=== PATIENT | male | born 1995 | race Caucasian/White ===

== ENCOUNTER 2016-07-23 14:20 | Emergency (ER) | payer OTHER ==
[2016-07-23 14:31] VITALS: BP 142/75; PULSE 69; RESP 16; TEMP 98.6; O2SAT 96
--- NOTE | 2016-07-23 15:14 | UCPHY ---
H & P Time Seen by Provider: 07/23/16 14:30 Patient Type: Established HPI/ROS: This patient presents with finger laceration. 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 The bleeding was controlled with direct pressure. No other injuries. ROS: No numbness. No difficulty moving the finger. No Other injuries. 5 point ROS is otherwise negative. Past Medical/Surgical History: Immunizations up-to-date Smoking Status: Former smoker Physical Exam: Physical Exam Vital signs are normal. General: No acute distress Eyes: Pupils equal and react to light. Extraocular motions are intact. Lungs: No respiratory distress. Cardiac: Brisk capillary refill is intact throughout. Skin: There is a 1.3 cm full-thickness laceration to the plantar aspect of the left 2nd finger distal phalanx with minimal bleeding. Subcutaneous tissues evident but no deeper structures are injured. No foreign bodies are present on direct examination. Neuro: Alert and oriented x3 with no sensorimotor deficits. Constitutional: Initial Vital Signs Temperature (C) 37 C 07/23/16 14:22 Heart Rate 69 07/23/16 14:22 Respiratory Rate 16 07/23/16 14:22 Blood Pressure 142/75 H 07/23/16 14:22 O2 Sat (%) 96 07/23/16 14:22 O2 Delivery Mode Room Air Allergies/Adverse Reactions: Penicillins Allergy (Intermediate, Verified 07/23/16 14:31) Rash Home Medications: Medication Instructions Recorded [facility] 03/23/16 MDM/Departure - MDM Procedures: Digital block: After verbal consent, using a 50 50 mix of 0.5% Marcaine 2% plain lidocaine, 27 gauge needle, chlorhexidine scrub under sterile conditions- 3 injections were administered to the base of the affected finger, 8 mL with good effect. Patient tolerated this well. There were no complications. The wound is 1.3 cm, full-thickness. The wound was copiously irrigated with saline. The wound was explored for foreign bodies and none were found. The wound was prepped and draped in the normal sterile fashion. The edges were reapproximated using 4 0 Prolene in a P3 needle-5 running sutures with good hemostasis and cosmesis. The patient tolerated the procedure well. There were no complications. Patient is placed in tube gauze dressing and counseled regarding wound care. - Depart Disposition: Home, Routine, Self-Care Clinical Impression: Finger laceration Qualifiers: Encounter type: initial encounter Qualified Code(s): S61.219A - Laceration without foreign body of unspecified finger without damage to nail, initial encounter Condition: Good Instructions: Finger Laceration (ED) Additional Instructions: Diagnosis: Finger laceration Plan: Keep the wound clean and dry for the next 2 days. Then removed the dressing, clean daily with warm soapy water Limited use of the finger at work as tolerated. Tylenol or ibuprofen if needed for pain. Return for suture removal in 10-12 days. Return sooner for redness, discharge or any other concerns for infection Stand Alone Forms: Work Limited Duty, School Excuse Referrals: Verbena-Elda Salmon MD [Primary Care Provider] - As per Instructions - PQRS PQRS Measurement: NA
== END 2016-07-23 15:24 | disposition home or self-care (01) ==
LOC: CED 14:20
PROC: 0HQGXZZ Repair Left Hand Skin, External Approach (ICD-10-PCS; principal; 2016-07-23)
DX: S61.211A Laceration without foreign body of left index finger without damage to nail, initial encounter (principal); Z87.891 Personal history of nicotine dependence; W26.9XXA Contact with unspecified sharp object(s), initial encounter; Y92.511 Restaurant or cafe as the place of occurrence of the external cause
CPT/HCPCS: 12001-PO; 99213-PO; G0463-PO